=== PATIENT | female | born 1980 | race Caucasian/White ===

== ENCOUNTER 2021-09-05 16:48 | Emergency (ER) | payer BC, SELFPAY ==
[2021-09-05 17:30] VITALS: BP 149/99; PULSE 76; RESP 18; TEMP 36.1; O2SAT 100
--- NOTE | 2021-09-05 18:39 | ED.URI ---
HPI - URI/Sore Throat General Chief Complaint: Upper Respiratory Infection Stated Complaint: sorethroat,headache,sob Time Seen by Provider: 09/05/21 17:50 Source: patient and RN notes reviewed Mode of arrival: ambulatory Limitations: no limitations History of Present Illness HPI Narrative: Patient presents today complaining of a 2-day history of sore throat, cough, nausea, diarrhea. Her kids at home have tested positive for COVID-19. 2 to 3 days ago she had a negative home test. Denies fever. She has not been taking any [id number] medication at home for her symptoms. She currently rates her sore throat 2?11/09. MD elicited complaint: cough and sore throat Related Data Allergies Allergy/AdvReac Type Severity Reaction Status Date / Time No Known Allergies Allergy Verified 04/27/15 10:17 Review of Systems Review of Systems: CONSTITUTIONAL: Denies body aches, fever, chills, or sweats. EYES: Denies visual changes, redness, or discharge. ENT: Denies rhinorrhea, congestion,or otalgia.+ Sore throat CARDIOVASCULAR: Denies chest pain, palpitations, or edema. RESPIRATORY: Denies dyspnea.+ Cough GASTROINTESTINAL: Denies abdominal pain, vomiting+ Nausea, diarrhea GENITOURINARY: Denies dysuria or hematuria. SKIN: Denies rash, itching, or wounds. MUSCULOSKELETAL: Denies back pain, joint pain, or myalgia. NEUROLOGIC: Denies headache, numbness, tingling, or weakness. PSYCH: Denies depression or anxiety. PMFSH Comments At time of signature, I have reviewed and agree with nursing past medical, surgical, social and family history unless otherwise noted. Please see nursing chart for further information. There is no relevant family history pertinent to the presenting complaint Exam Narrative: GENERAL: Well-appearing, well-nourished, and in no acute distress. HEAD: Normocephalic, atraumatic. EYES: EOMI. No redness or drainage. Conjunctivae normal. ENT: Mucous membranes pink and moist. Nares clear. No rhinorrhea. TMs normal bilaterally. Throat with slight redness to the right palatine arch. Uvula midline. NECK: Normal AROM. Supple. No lymphadenopathy. CHEST: No respiratory distress. Clear to auscultation. HEART: Regular rate and rhythm. No murmur appreciated. Normal peripheral pulses. ABDOMEN: Soft, nontender, nondistended, normal active bowel sounds. EXTREMITIES: Normal range of motion. No edema. SKIN: Warm, dry, no rash. Capillary refill normal. Normal skin turgor. NEURO: No focal deficits. Alert and oriented x3. Gait steady. PSYCH: Normal affect. No signs of depression or anxiety. Course Course Level of Care: Express Care Visit Vital Signs Vital signs: Vital Signs Temperature 96.9 F L 09/05/21 17:30 Pulse Rate 76 09/05/21 17:30 Respiratory Rate 18 09/05/21 17:30 Blood Pressure 149/99 H 09/05/21 17:30 Pulse Oximetry 100 09/05/21 17:30 Temperature 96.9 F L 09/05/21 17:30 Pulse Rate 76 09/05/21 17:30 Respiratory Rate 18 09/05/21 17:30 Blood Pressure 149/99 H 09/05/21 17:30 Pulse Oximetry 100 09/05/21 17:30 Reviewed. Pt has been instructed to follow up with her PCP regarding her elevated blood pressure today. MDM - URI/Sore Throat Differential Diagnosis Differential diagnosis: Likely upper respiratory infection, viral infection, pharyngitis and other (COVID-19, strep throat) Lab Data Attestation: I reviewed the patient's lab results. Lab results narrative: Rapid COVID-19 test negative Labs: Strep Screen Presumptive Negative *(Reference Range: Negative)* Critical Care Time Critical Care Time Critical Care Time: No Discharge Plan Discharge Clinical Impression: Viral syndrome Patient Disposition: Home, Self-Care Condition: Stable Instructions: Viral Syndrome (ED) Additional Instructions: Rapid strep screen and rapid COVID-19 test are negative. You have a COVID-19 PCR test pending and will be notified of t
[2021-09-06 14:39] LABS: SARS-CoV-2 RNA PCR Positive
== END 2021-09-05 18:55 | disposition home or self-care (01) ==
PROVIDERS: Emergency Provider Nurse Practitioner; PCP Nurse Practitioner Family
DX: U07.1 COVID-19 (principal)
CPT/HCPCS: 87081; 87426; 87880; 99213; C9803; G0463; U0003; U0005

== ENCOUNTER 2022-07-19 11:24 | Emergency (ER) | payer BC, SELFPAY ==
[2022-07-19 11:35] VITALS: BP 173/96; PULSE 82; RESP 18; TEMP 36.8; O2SAT 96
--- NOTE | 2022-07-19 11:57 | ED.ABDPAIN ---
HPI - Abdominal Pain General Chief Complaint: Abdominal Pain Stated Complaint: Abdominal Pain Time Seen by Provider: 07/19/22 11:57 Source: patient Mode of arrival: ambulatory Limitations: no limitations History of Present Illness HPI narrative: 41-year-old female presents with complaint of lower abdominal cramping and chills the past 2-3 days. Today she reports pain is worse to right lower quadrant, vomited once and now has feeling that she needs to have a bowel movement but was unable to go . She denies urinary symptoms. No concern for . No URI symptoms. Is concerned for appendicitis. She states that she feels like her abdomen is rigid . All systems reviewed and negative except as noted above. Related Data Home Medications Medication Instructions Recorded Confirmed No Home Medications 07/19/22 07/19/22 Allergies Allergy/AdvReac Type Severity Reaction Status Date / Time No Known Allergies Allergy Verified 07/19/22 11:49 Review of Systems Review of Systems: CONSTITUTIONAL: Denies fever, chills, or sweats. EYES: Denies visual changes, redness, or discharge. ENT: Denies rhinorrhea, congestion, sore throat, or otalgia. CARDIOVASCULAR: Denies chest pain, palpitations, or edema. RESPIRATORY: Denies cough or dyspnea. GASTROINTESTINAL: Reports right lower abdominal pain, constipation, nausea vomiting. GENITOURINARY: Denies dysuria or hematuria. SKIN: Denies rash or itching. MUSCULOSKELETAL: Denies back pain, joint pain, or myalgia. NEUROLOGIC: Denies headache, numbness, or weakness. PSYCHIATRIC: Denies anxiety or depression. All other systems reviewed are negative, except as documented in HPI. PMFSH Comments At time of signature, agree with nursing past medical, surgical, social and family history. There is no relevant family history pertinent to the presenting complaint. Exam Narrative: GENERAL: This is a well-nourished, well-developed patient, in no apparent distress. HEAD: normocephalic, atraumatic. EYES: PERRL. Sclera clear/white. Vision is grossly intact. EARS: External ears normal NOSE: External nose normal NECK: Neck supple, non-tender without lymphadenopathy, masses or thyromegaly. CARDIOVASCULAR: Regular rate and rhythm without murmurs, gallops, or rubs. RESPIRATORY: Clear to auscultation. Breath sounds equal bilaterally. No wheezes, rales, or rhonchi. GASTROINTESTINAL: Suprapubic, right lower abdominal tenderness. Bowel sounds are active. SKIN: warm, Dry, intact with no suspicious lesions or rash, good texture and turgor. NEURO: awake, alert, and oriented to person, place and time. There were no obvious focal neurologic abnormalities. EXTREMITIES: No joint tenderness, effusion, or edema noted. Course Course Level of Care: Express Care Visit Vital Signs Vital signs: Reviewed Transfer Transfered to: [place] Transportation: Other ( private car) Transfer rationale: transfer to [place] ER for further evaluation of right lower abdominal pain, rule out appendicitis. Accepting physician: Heather CHILD MDM - Abdominal Pain MDM Narrative Medical decision making narrative: Patient is aware of diagnosis, understands and agrees to treatment plan. Anticipatory guidance given. Patient agrees to follow-up as directed and is aware of reasons to seek care at the emergency department. Portions of this record may have been created with voice recognition software Differential Diagnosis Differential diagnosis: Likely abdominal pain, acute appendicitis, constipation, gastroenteritis and small bowel obstruction Lab Data Labs: Urine Glucose Negative Reference Range: Negative Urine Bilirubin Negative Reference Range: Negative Urine Ketone Negative Reference Range: Negative Urine Specifi
== END 2022-07-19 12:08 | disposition short-term general hospital (02) ==
PROVIDERS: Emergency Provider Nurse Practitioner Family; PCP Nurse Practitioner Family
DX: R10.31 Right lower quadrant pain (principal)
CPT/HCPCS: 81003; 99212; G0463

== ENCOUNTER 2022-07-19 12:35 | Day surgery (SDC) | payer BC, SELFPAY ==
[2022-07-19] VITALS (7 sets, daily range): BP systolic 100–178; BP diastolic 57–91; PULSE 67–80; RESP 15–20; TEMP 36.6–37.1; O2SAT 96–100
--- NOTE | ~2022-07-19 | CT_ITS ---
EXAMINATION: CT abdomen pelvis w con DATE: 07/19/2022 13:56 INDICATION: Right lower quadrant abdominal pain. TECHNIQUE: Computed tomography (CT) of the abdomen and pelvis was performed with 100 mL Omnipaque 350 intravenous contrast. Automated exposure control and iterative reconstruction technique were employe d. The dose-length product was 1454.59 mGy-cm. COMPARISON: None. FINDINGS: The visualized portions of the lung bases demonstrate mild atelectasis. No pleural effusion . The heart size is normal. No pericardial effusion. The liver, gallbladder, spleen, pancreas, adrena l glands, and kidneys are normal. There is an appendicolith in the base of the appendix. The appendix is dilated to 9 mm with surrounding fat stranding, consistent with acute appendicitis. There are no pathologically enlarged lymph nodes. There is physiologic fluid in the pelvis. There is mild thoracol umbar spondylosis. IMPRESSION: 1. Acute appendicitis. Reviewed, dictated and finalized at location A. 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 Acute appendicitis.
--- NOTE | 2022-07-19 13:21 | ED.ABDPAIN ---
HPI - Abdominal Pain General Chief Complaint: Abdominal Pain Stated Complaint: R SIDED ABD PAIN Time Seen by Provider: 07/19/22 13:13 Source: RN notes reviewed History of Present Illness HPI narrative: Patient presents emergency room from home for abdominal pain. Patient states pain began 3 days ago. The pain is located in the right side of the abdomen pain has worsened today and is located in the right upper quadrant with radiation in the right lower quadrant. It is associate with nausea and vomiting. She denies any diarrhea she denies any chest pain or shortness of breath. States she has had no fevers or chills she did take Midol at home this morning with minimal relief of the pain Related Data Home Medications Medication Instructions Recorded Confirmed No Home Medications 07/19/22 07/19/22 Allergies Allergy/AdvReac Type Severity Reaction Status Date / Time No Known Allergies Allergy Verified 07/19/22 11:49 Review of Systems Review of Systems: Gen.: Denies fevers or chills ENT: Denies congestion Respiratory: Denies shortness of breath or cough CV: Denies chest pain or palpitations GI: See HPI Musculoskeletal: Denies back pain or muscle pain Neuro: Denies numbness, tingling, weakness or focal weakness Skin: Denies rash Except as documented, all other systems reviewed and negative [facility] Past Medical History Medical History (Updated 07/19/22 @ 15:24 by Errol Barron DO) Patient denies significant medical history Social History Social History (Updated 07/19/22 @ 13:22 by Errol Barron DO) Smoking status: Never smoker Exam Narrative: APPEARANCE: No acute distress, nontoxic, resting in bed HEENT: Normocephalic, atraumatic, OMM RESPIRATORY: No respiratory distress, clear to auscultation bilaterally with no rhonchi wheezing or rales CARDIOVASCULAR: RRR s murmur ABDOMINAL: Soft nondistended tender palpation in right upper quadrant and right lower quadrant no tenderness left upper quadrant left lower quadrant no rebound or guarding MUSCULOSKELETAl: Moves all extremities. No clubbing, cyanosis or edema. NEURO: Awake and alert. Following commands, speech normal, no focal deficits SKIN:: Warm, dry. Normal Color PSYCHIATRIC: Normal affect/mood Course Course Emergency Course: Called and discussed with Dr. Hernandez will come see patient in the ED Dr. Hernandez came to see patient in the ED we will plan take patient to the OR. Requesting antibiotics at this time as we will put him in for preop Discussed with patient and family r results of appendicitis plan for OR. All questions answered Vital Signs Vital signs: Vital Signs Temperature 98.8 F 07/19/22 13:00 Pulse Rate 76 07/19/22 13:00 Respiratory Rate 18 07/19/22 13:00 Blood Pressure 178/91 H 07/19/22 13:00 Pulse Oximetry 100 07/19/22 13:00 Oxygen Delivery Room Air 07/19/22 13:00 Temperature 98.8 F 07/19/22 13:00 Pulse Rate 76 07/19/22 13:00 Respiratory Rate 18 07/19/22 13:00 Blood Pressure 178/91 H 07/19/22 13:00 Pulse Oximetry 100 07/19/22 13:00 Oxygen Delivery Room Air 07/19/22 13:00 MDM - Abdominal Pain Lab Data Result diagrams: 07/19/22 13:05 07/19/22 13:05 Labs: Lab Results 07/19/22 07/19/22 07/19/22 Range/Units 13:05 13:05 13:14 WBC 13.3 H (4.5-10.0) K/mm3 RBC 4.42 (4.2-5.4) M/mm3 Hgb 14.1 (12.0-15.0) g/dL Hct 41.6 (37.0-47.0) % MCV 94.1 (80-100) fl MCH 31.9 (26-34) pg MCHC 33.9 (32-36) g/dl RDW 12.8 (11.5-14.5) % Plt Count 239 (150-375) k/mm3 MPV 11.1 H (7.4-10.4) fl Immature Gran % (Auto) 0.2 (0-0.5) % Neut % (Auto) 82.7 H (45.5-73.1) % Lymph % (Auto) 12.1 L (18.3-44.2) % [place] % (Auto) 4.6 (2.6-8.5) % Eos % (Auto) 0.2 (0-4.4) % Baso % (Auto) 0.2 (0.2-1.2) % Lymph # (Auto) 1.61 (0.9-3.2) K/mm3 [place] # (Auto) 0.6 (0.1-0.6) K/mm3 Eos # (Auto) 0.0 (0-0
[2022-07-19 13:27] LABS: Basophils Percent Auto 0.2 % (0.2-1.2); Eosinophils Percent Auto 0.2 % (0-4.4); Hematocrit 41.6 % (37.0-47.0); Hemoglobin 14.1 g/dL (12.0-15.0); Immature Granulocyte Absolute 0.03 K/mm3 (0.00-0.031); Immature Granulocyte Percent A 0.2 % (0-0.5); Lymphocytes Absolute Auto 1.61 K/mm3 (0.9-3.2); Lymphocytes Percent Auto 12.1 % (18.3-44.2); Mean Corpuscular HGB Conc 33.9 g/dl (32-36); Mean Corpuscular Hemoglobin 31.9 pg (26-34); Mean Corpuscular Volume 94.1 fl (80-100); Mean Platelet Volume 11.1 fl (7.4-10.4); Monocytes Absolute Auto 0.6 K/mm3 (0.1-0.6); Monocytes Percent Auto 4.6 % (2.6-8.5); Neutrophils Percent Auto 82.7 % (45.5-73.1); Platelet Count Result 239 k/mm3 (150-375); Red Blood Count 4.42 M/mm3 (4.2-5.4); Red Cell Distribution Width 12.8 % (11.5-14.5); White Blood Count 13.3 K/mm3 (4.5-10.0)
[2022-07-19 13:32] LABS: Appearance Urine Clear (Clear); Bilirubin Urine Negative (Negative); Blood Urine Negative (Negative); Color Urine Yellow (Yellow); Glucose Urine UA Negative (Negative); Ketones Urine 1+ mg/dL (Negative); Leukocyte Esterase Ur Negative LEU/UL (Negative); Nitrate Urine Negative (Negative); Protein Urine Negative (Negative); Specific Grav Ur 1.025 (1.001-1.035); Urobilinogen Urine 0.2 mg/dL (<2.0)
[2022-07-19 13:37] LABS: Alanine Aminotransferase 19 U/L (6-35); Albumin Level 4.7 g/dL (3.5-5.1); Alkaline Phosphatase 69 U/L (38-126); Anion Gap 8 mmol/L (8-16); Aspartate Amino Transferase 21 U/L (14-36); Bilirubin,Total 0.9 mg/dL (0.2-1.3); Blood Urea Nitrogen 11 mg/dL (7-17); Calcium 9.2 mg/dL (8.4-10.2); Carbon Dioxide 25 mmol/L (22-30); Chloride 100 mmol/L (98-107); Estimated CRCL calculation 125 ml/min; Estimated Glomerular Filt Rate > 60; Glucose 96 mg/dL (65-110); Lipase 43 U/L (23-300); Potassium 4.3 mmol/L (3.4-5.0); Sodium 133 mmol/L (137-145)
[2022-07-19 13:43] LABS: Bacteria Urine Trace /hpf; Mucus Urine Rare /lpf; RBC Urine 0-2 /hpf (0-2); Squamous Epithelial Cell Urine Occasional /hpf (Few); WBC Urine 0-3 /hpf
[2022-07-19 13:46] LABS: Add Urine Microscopic? YES
[2022-07-19] MEDS: SODIUM CHLORIDE 0.9% IV 1,000 ML 999 ML IV CONT (14:02)
[2022-07-19] MEDS: ONDANSETRON INJ 4 MG/2 ML VIAL IV PUSH (14:02)
[2022-07-19] MEDS: KETOROLAC 30 MG/ML VIAL (*BKC) IV PUSH (14:02)
--- NOTE | 2022-07-19 15:32 | PM.IMHP ---
H&P: HPI History of Present Illness Date/Time: 07/19/22 15:32 Chief Complaint: Lower abdominal pain shifting to the right over the last 12 hours Narrative: The patient is a 41-year-old white female who presented to the emergency room from home for abdominal pain.? Patient states pain began had a low level3 days ago. she states however that early this morning at 4:30 a.m. she woke up with fairly severe pain more now on the right then in the mid abdomen.? The pain is located on the right side of the abdomen pain has worsened today and is located in the right upper quadrant with radiation in the right lower quadrant.? It is associated with nausea and vomiting.? She denies any diarrhea, she denies any chest pain or shortness of breath.? She states she had a small normal stool this morning. States she has had no fevers or chills &she did take Midol at home this morning with minimal relief of the pain. Workup in the emergency room showed elevated white count. Because of her symptoms CT scan of the abdomen pelvis was done and I have reviewed this. It shows is dilated appendix without sign of perforation but an appendicolith at its base. There was a small amount of pelvic fluid but no other specific abnormalities on the CT scan of the abdomen and pelvis. See plan below. Review of Systems Review of Systems: All systems reviewed & are unremarkable except as noted in HPI and below (HPI) Constitutional: Constitutional: Reports as per HPI, Denies chills and Denies fever(s) Eyes: Eyes: Reports no additional eye complaints ENT: Reports Normal hearing present and Denies dizziness Cardiovascular: Cardiovascular: Reports no additional cardiovascular complaints, Denies chest pain and Denies irregular heart rhythm Respiratory: Respiratory: Reports no additional respiratory complaints Gastrointestinal: Gastrointestinal: Reports no additional gastrointestinal complaints, Denies abdominal pain and Denies bloating Comments: 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 Patient is therefore careful with fatty foods. Genitourinary: Genitourinary: Reports no additional female genitourinary complaints, Denies hematuria, Denies dysmenorrhea, Denies dysuria and Reports other (Premenopausal) Comments: Patient not yet due for her period but had cramping in the lower abdomen like. Cramps for the last 3 days. Musculoskeletal: Musculoskeletal: Denies back pain Integumentary/Breasts: Skin/Breast: Reports system reviewed and no additional complaints, except as docu Neurologic: Reports Normal hearing present, Denies Abnormal speech present, Denies confusion and Denies dizziness Psychiatric: Psychiatric: Reports no additional psychiatric complaints and Denies confusion Endocrine: Endocrine: Reports no additional endocrine complaints Hematologic/Lymphatic: Hematologic/Lymphatic: Denies easy bleeding and Denies easy bruising Allergic/Immunologic: Allergic/Immunologic: Reports no additional allergic/immunologic complaints PMFSH Past Medical History Medical History Obesity (BMI 30.0-34.9) Surgical History Surgical History History of section History of laparoscopy Social History Social History Smoking status: Never smoker Meds Home Medications and Allergies Home Medications Medication Instructions Recorded Confirmed Type No Home Medications 07/19/22 07/19/22 History Allergies Allergy/AdvReac Type Severity Reaction Status Date / Time No Known Allergies Allergy Verified 07/19/22 11:49 Vital Signs Vital Signs - 24 hr 07/19/22 13:00 Temperature 37.1 C Pulse Rate 76 Respiratory Rate 18 Blood Pressure 178/91 H Pulse Oximetry 100 Oxygen Delivery Room Air Exam Const: General:
[2022-07-19] MEDS: SODIUM CHLORIDE 0.9% IV 1,000 ML 100 ML IV CONT (15:58)
[2022-07-19] MEDS: LACTATED RINGERS 1,000 ML 30 ML IV CONT ×2 (17:14→19:38)
--- NOTE | 2022-07-19 17:42 | WPDANESEPPF ---
Anes - Initial Pre Proc Eval Procedure: Operation Date: 07/19/22 18:00 Proposed Procedures p Laparoscopic Appendectomy Possible Open - Dav Hernandez MD Date/Time: 07/19/22 17:42 Surgeon: Dav Hernandez MD Pre Op Diagnosis: R SIDED ABD PAIN Patient Data Age: 41 Gender: F Height: 1.7 m Weight: 100 kg Last Vital Signs Temp 36.9 C 07/19/22 17:26 Pulse 73 07/19/22 17:26 Resp 16 07/19/22 17:26 BP 120/57 L 07/19/22 17:26 Pulse Ox 100 07/19/22 17:26 O2 Del Method Room Air 07/19/22 17:26 Allergies Allergy/AdvReac Type Severity Reaction Status Date / Time No Known Allergies Allergy Verified 07/19/22 11:49 Home Medications Medication Instructions Recorded Confirmed Type No Home Medications 07/19/22 07/19/22 History Laboratory Tests 07/19/22 07/19/22 07/19/22 13:05 13:05 13:14 WBC 13.3 K/mm3 H K/mm3 (4.5-10.0) RBC 4.42 M/mm3 M/mm3 (4.2-5.4) Hgb 14.1 g/dL g/dL (12.0-15.0) Hct 41.6 % % (37.0-47.0) MCV 94.1 fl fl (80-100) MCH 31.9 pg pg (26-34) MCHC 33.9 g/dl g/dl (32-36) RDW 12.8 % % (11.5-14.5) Plt Count 239 k/mm3 k/mm3 (150-375) MPV 11.1 fl H fl (7.4-10.4) Immature Gran % (Auto) 0.2 % % (0-0.5) Neut % (Auto) 82.7 % H % (45.5-73.1) Lymph % (Auto) 12.1 % L % (18.3-44.2) [place] % (Auto) 4.6 % % (2.6-8.5) Eos % (Auto) 0.2 % % (0-4.4) Baso % (Auto) 0.2 % % (0.2-1.2) Lymph # (Auto) 1.61 K/mm3 K/mm3 (0.9-3.2) [place] # (Auto) 0.6 K/mm3 K/mm3 (0.1-0.6) Eos # (Auto) 0.0 K/mm3 K/mm3 (0-0.3) Baso # (Auto) 0.0 K/mm3 K/mm3 (0.0-0.1) Abs Immat Gran (auto) 0.03 K/mm3 K/mm3 (0.00-0.031) Absolute Neuts (auto) 11.0 K/mm3 H K/mm3 (1.3-6.7) Absolute Nucleated RBC 0.0 K/mm3 K/mm3 (0.0-0.012) Nucleated RBC % 0.0 % % (0.0-0.2) Sodium 133 mmol/L L mmol/L (137-145) Potassium 4.3 mmol/L mmol/L (3.4-5.0) Chloride 100 mmol/L mmol/L (98-107) Carbon Dioxide 25 mmol/L mmol/L (22-30) Anion Gap 8 mmol/L mmol/L (8-16) BUN 11 mg/dL mg/dL (7-17) Creatinine 0.60 mg/dL L mg/dL (0.7-1.0) Estim Creat Clear Calc 125 ml/min ml/min Estimated GFR > 60 (59 - ) Glucose 96 mg/dL mg/dL (65-110) Calcium 9.2 mg/dL mg/dL (8.4-10.2) Total Bilirubin 0.9 mg/dL mg/dL (0.2-1.3) AST 21 U/L U/L (14-36) ALT 19 U/L U/L (6-35) Alkaline Phosphatase 69 U/L U/L (38-126) Total Protein 8.0 g/dL g/dL (6.3-8.2) Albumin 4.7 g/dL g/dL (3.5-5.1) Lipase 43 U/L U/L (23-300) Urine Color Yellow (Yellow) Urine Appearance Clear (Clear) Urine pH 6.0 (5.0-9.0) Ur Specific [place] 1.025 (1.001-1.035) Urine Protein Negative mg/dL mg/dL (Negative) Urine Glucose (UA) Negative mg/dL mg/dL (Negative) Urine Ketones 1+ mg/dL H mg/dL (Negative) Ur Blood (Man) Negative (Negative) Urine Nitrate Negative (Negative) Urine Bilirubin Negative (Negative) Urine Urobilinogen 0.2 mg/dL mg/dL (<2.0) Leukocyte Esterase Rfl Negative SAM/UL SAM/UL (Negative) Urine RBC 0-2 /hpf /hpf (0-2) Urine WBC 0-3 /hpf /hpf Ur Squamous Epith Cells Occasional /hpf /hpf (Few) Urine Bacteria Trace /hpf /hpf Urine Mucus Rare /lpf /lpf Patient hx anesthesia problems: post op nausea/vomiting Family hx anesthesia problems: none Results Review: All pre-operative results and documents have been reviewed as part of the pre-operative evaluation. [facility] Past Medical History Medical History (Rev
[2022-07-19] MEDS: SCOPOLAMINE 1.5 MG PATCH TRANSDERM (17:44)
--- NOTE | 2022-07-19 17:51 | WPDHPUPDATE1 ---
History and Physical Update Update Date/Time: 07/19/22 17:51 History and Physical has been reviewed, including an updated exam of the patient. There are NO changes in the patient's condition. Risks, benefits, and alternatives have been discussed and questions answered. Patient agrees to proceed with procedure.
[2022-07-19] MEDS: cefoTEtan DISODIUM INJ 2 GM in DEXTROSE 5% IN WATER 50 ML IVPB (18:03)
[2022-07-19] MEDS: BUPIVACAINE HCL 0.5% PF 30 ML VIAL INFILTRATE (19:26)
--- NOTE | 2022-07-19 19:34 | W.PM.PROC2 ---
Procedure Note - Detailed Date of Procedure 07/19/22 Pre-op Diagnosis 1. Acute uncomplicated appendicitis 2. Rt. SIDED ABD PAIN Post-op Diagnosis Same Procedure Performed laparoscopic appendectomy Surgeon Dav Hernandez MD Selling Specialist Kim BROWN. 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 She had an elevated white count and CT scan showing acute uncomplicated appendicitis with no signs of perforation but an appendicolith at its base. Findings Patient's appendix was even with the umbilicus between the cecum and the right abdominal sidewall. Was fairly adherent to the right sidewall of the colon and some of the fat on the omentum. There was no signs of perforation. Description of Procedure The patient was seen in the emergency Room. The risks, benefits, complications, treatment options, and expected outcomes were discussed with the patient and/or family. The possibilities of reaction to medication, pulmonary aspiration, perforation of viscus, bleeding, recurrent infection, finding a normal appendix, the need for additional procedures, failure to diagnose a condition, and creating a complication requiring transfusion or operation were discussed. There was concurrence with the proposed plan and informed consent was obtained. The site of surgery was properly noted/marked. The patient was taken to Operating Room, and a time out was preformed which identified this as the proper patient, and the procedure verified as laparoscopic appendectomy, possible open. The patient was placed in the supine position and general anesthesia was induced, along with placement of an orogastric tube, SCD hose, and a Fernandez catheter. The abdomen was prepped and draped in a sterile fashion. Because the patient had had previous surgeries the Plummer cannula technique was utilized. To do this I made a incision in the umbilical area and carried this down to the midline fascia. Under direct vision the midline fascia was incised and the peritoneum entered under direct vision after placing 2 sutures of 0 Vicryl in the fascia on either side of midline. The Plummer cannula was then slid into place into the peritoneum under direct vision. The pneumoperitoneum was then established to steady pressure of 14 mm Hg. A 12 mm laparoscopic port was placed through a transverse suprapubic incision. An additional 5 mm cannula was then placed in in the left upper quadrant at the level retirement between the left costal margin and the umbilicus under direct vision. A careful evaluation of the entire abdomen was carried out. The patient was placed in Trendelenburg and left lateral decubitus position. The small intestines were retracted in the cephalad and left lateral direction away from the pelvis and right lower quadrant. The patient was found to have an enlarged and inflamed appendix that was extending [into the right side of the pelvis. There was no evidence of perforation. The appendix was carefully dissected. Because of the positioning the appendix I used a [place] dissector to dissect right at the junction of the appendix base to the cecum and was able to make a small window at that site in the mesoappendix such that I could slide the stapler through their at the base the appendix. A blue gastrointestinal load was placed on the Endo-DOMINIQUE stapler and brought through the suprapubic port site. With slight maneuvering I was able to be slid across the base the appendix right where it joined the cecum. Once this was completed it was closed fired left in place for 15 seconds removed. Minimal bleeding occurred and I touched a little bit of the mesial base with Bovie cautery to stop a slight be a bleeder. This left the mesoappendix to be divided. Once it was free at the base a 45 mm ethicon endogastroentestinal stapler with a vascular load was placed across the mesoappendix. This was fired and hemostasis was checked along the staple line and maxine
== END 2022-07-19 20:48 | disposition home or self-care (01) ==
LOC: ANHED 15:24 → ANHSURGERY 15:26
PROVIDERS: Emergency Provider Emergency Medicine; PCP Nurse Practitioner Family; Visit Provider Surgery
PROC: 0DTJ4ZZ Resection of Appendix, Percutaneous Endoscopic Approach (ICD-10-PCS; CPT 44970; principal; 2022-07-19 18:00)
DX: K35.30 Acute appendicitis with localized peritonitis, without perforation or gangrene (principal); K83.8 Other specified diseases of biliary tract; E66.9 Obesity, unspecified; Z68.34 Body mass index [BMI] 34.0-34.9, adult
CPT/HCPCS: 44970; 36415; 74177; 80053; 81001; 81025; 83690; 85025; 88304; 96361; 96374; 96375; 99285; A9270; J0330; J1100; J1885; J2405; J2704; J2710; J3010; J7030; J7120; Q9967

== ENCOUNTER 2024-03-10 01:20 | Day surgery (SDC) | payer BC, SELFPAY ==
[2024-02-27 11:38] VITALS: BMI 33.7
[2024-03-10 10:41] VITALS: BP 127/83; PULSE 71; RESP 16; TEMP 36.5; O2SAT 100
[2024-03-10] MEDS: LACTATED RINGERS 1,000 ML 150 ML IV CONT (11:03)
--- NOTE | 2024-03-10 11:16 | P.PNAN_ITS ---
Anes - Initial Pre Proc Eval Procedure: Operation Date: 03/10/24 11:30 Proposed Procedures p Screening Colonoscopy - Daryl Arriola DO Date/Time: 03/10/24 11:16 Surgeon: Daryl Arriola DO Pre Op Diagnosis: screening neoplasm Patient Data Age: 43 Gender: F Height: 1.7 m Weight: 99.6 kg Last Vital Signs Temp 97.7 F 03/10/24 10:41 Pulse 71 03/10/24 10:41 Resp 16 03/10/24 10:41 BP 127/83 03/10/24 10:41 Pulse Ox 100 03/10/24 10:41 O2 Del Method Room Air 03/10/24 10:41 Allergies Allergy/AdvReac Type Severity Reaction Status Date / Time No Known Allergies Allergy Verified 03/10/24 10:40 Home Medications Medication Instructions Recorded Confirmed Type No Home Medications 02/27/24 02/27/24 History Patient hx anesthesia problems: none Family hx anesthesia problems: none Results Review: All pre-operative results and documents have been reviewed as part of the pre- operative evaluation. [facility] Past Medical History Medical History Obesity (BMI 30.0-34.9) Surgical History Surgical History History of section History of laparoscopic appendectomy 07/19/22 History of laparoscopy Family History Family History (Updated 12/19/23 @ 08:07 by Olga Carson CMA) Father Hypertension Grandparent Asthma Cancer Thyroid disorder Social History Social History (Updated 12/19/23 @ 08:22 by Anju Potter) Social History: Patient is very confident in filling out paperwork. Smoking status: Never smoker Alcohol intake: current Drinks per week: 3 Alcohol use details: WINE Substance use: never Substance use type: does not use Do You Feel Safe in your Home?: Yes Lack of Transportation: No Lack of Food: Never True Current Housing: I Have Housing Concerned About Future Housing: No Difficulty Paying Gas/Electric Bills: No Difficulty Paying for Meds: No Currently Unemployed: No Education: Master's Degree or Higher Difficulty w/ Childcare or Family Care: No Living arrangements: with family Spiritual care concerns: No Anes - Eval Final PreProcedure Day of Procedure 03/10/24 11:16 Patient weight: obese Heart: regular rate and rhythm Lungs: clear to auscultation Airway: Mallampati scale class II Neurological: alert and oriented Last oral intake: >/= 8 hours ASA classification: II Emergent: no Anesthetic plan: proceed Anesthesia type and monitoring: general GIVS and standard monitoring Results Review: All pre-operative results and documents have been reviewed as part of the pre- operative evaluation. Informed Consent: The patient's anesthetic plan and its attendant risks and benefits were discussed with the patient/family/POA. Questions were solicited and answers provided to the satisfaction of the patient/family/POA.
--- NOTE | 2024-03-10 11:52 | PM.IMHP ---
H&P: HPI History of Present Illness Date/Time: 03/10/24 11:52 Chief Complaint: screening for colorectal cancer Narrative: this is a 43-year-old woman who presents for colonoscopy. She has never had a colonoscopy before. She denies any hematochezia or melena. She denies any family history of colon cancer. Review of Systems Review of Systems: All systems reviewed & are unremarkable except as noted in HPI and below Constitutional: Constitutional: Denies chills, Denies fever(s), Denies headache(s) and Denies weight loss Eyes: Eyes: Denies change in vision ENT: Denies dizziness, Denies headache(s), Denies neck mass and Denies throat swelling Cardiovascular: Cardiovascular: Denies chest pain, Denies lightheadedness and Denies dyspnea Respiratory: Respiratory: Denies cough, Denies dyspnea and Denies wheezing Gastrointestinal: Gastrointestinal: Denies abdominal pain, Denies change in bowel habits, Denies nausea and Denies vomiting Genitourinary: Genitourinary: Denies hematuria and Denies dysuria Musculoskeletal: Musculoskeletal: Reports as per HPI Integumentary/Breasts: Skin/Breast: Reports as per HPI Neurologic: Denies dizziness and Denies headache(s) Allergic/Immunologic: Allergic/Immunologic: Denies throat swelling and Denies wheezing [facility] Past Medical History Medical History Obesity (BMI 30.0-34.9) Surgical History Surgical History History of section History of laparoscopic appendectomy 07/19/22 History of laparoscopy Family History Family History (Updated 12/19/23 @ 08:07 by Olga Carson CMA) Father Hypertension Grandparent Asthma Cancer Thyroid disorder Social History Social History (Updated 12/19/23 @ 08:22 by Anju Potter) Social History: Patient is very confident in filling out paperwork. Smoking status: Never smoker Alcohol intake: current Drinks per week: 3 Alcohol use details: WINE Substance use: never Substance use type: does not use Do You Feel Safe in your Home?: Yes Lack of Transportation: No Lack of Food: Never True Current Housing: I Have Housing Concerned About Future Housing: No Difficulty Paying Gas/Electric Bills: No Difficulty Paying for Meds: No Currently Unemployed: No Education: Master's Degree or Higher Difficulty w/ Childcare or Family Care: No Living arrangements: with family Spiritual care concerns: No Meds Home Medications and Allergies Home Medications Medication Instructions Recorded Confirmed Type No Home Medications 02/27/24 02/27/24 History Allergies Allergy/AdvReac Type Severity Reaction Status Date / Time No Known Allergies Allergy Verified 03/10/24 10:40 Vital Signs Vital Signs - 24 hr 03/10/24 10:41 Temperature 36.5 C Pulse Rate 71 Respiratory Rate 16 Blood Pressure 127/83 Pulse Oximetry 100 Oxygen Delivery Room Air Exam Const: General: no acute distress and alert Orientation/consciousness: patient oriented x3 HENMT: Head: normocephalic and atraumatic Ears: hearing grossly normal bilaterally Face/Nose/Sinus: Normal nares present Mouth: Yes Normal oral and palatal mucosa present Eyes: Periorbital: periorbital findings normal Sclera: sclerae normal EOM: EOMs intact bilaterally Neck: Neck: normal visual inspection, no lymphadenopathy and trachea midline Chest: Chest palpation & inspection: normal inspection of the chest Resp: Effort & Inspection: normal respiratory effort Auscultation: clear to auscultation bilaterally Cardio: Jugular venous distension: no JVD Rate: regular rate Rhythm: regular rhythm Heart sounds: S1 normal heart sound present and S2 normal heart sound present Peripheral pulses: Peripheral pulses 2+ throughout GI: Inspection: normal to inspection GI Palp: Yes Soft to palpation, No Tenderness to palpation present (GI
[2024-03-10 12:24] VITALS: BP 91/47; PULSE 62; RESP 29; O2SAT 100
[2024-03-10 12:34] VITALS: BP 94/30; PULSE 58; RESP 18; O2SAT 100
[2024-03-10 12:44] VITALS: BP 102/60; PULSE 60; RESP 18; O2SAT 100
== END 2024-03-10 12:46 | disposition home or self-care (01) ==
PROVIDERS: PCP Nurse Practitioner Family; Visit Provider Surgery
PROC: 0DJD8ZZ Inspection of Lower Intestinal Tract, Via Natural or Artificial Opening Endoscopic (ICD-10-PCS; CPT 45378; principal; 2024-03-10 11:30)
DX: Z12.11 Encounter for screening for malignant neoplasm of colon (principal); E66.9 Obesity, unspecified; Z68.34 Body mass index [BMI] 34.0-34.9, adult
CPT/HCPCS: 45378; J2704; J7120

== ENCOUNTER 2024-03-13 10:00 | Outpatient (CLI) | payer BC, SELFPAY ==
--- NOTE | ~2024-03-13 | MM_ITS ---
EXAMINATION: MM screening nichole BI w abi HISTORY: Screening TECHNIQUE: Craniocaudal and mediolateral oblique 3-D tomosynthesis images were obtained and synthetic 2-D images were generated. CAD analysis was submitted and interpreted. COMPARISON: 07/14/2019 BREAST PARENCHYMAL COMPOSITION: Not dense: There are scattered areas of fibroglandular density. FINDINGS: There are developing asymmetries in the right breast. The left breast is stable without teto dence for malignancy. IMPRESSION: 1. Developing right breast asymmetries. 2. Additional mammographic views and possible breast ultrasound are recommended. BI-RADS Category 0: Incomplete: Needs additional imaging evaluation. Reviewed, dictated and finalized at location B. IMPRESSION: 1. Developing right breast asymmetries. 2. Additional mammographic views and possible breast ultrasound are recommended . BI-RADS Category 0: Incomplete: Needs additional imaging evaluation.
== END 2024-03-13 10:01 | disposition home or self-care (01) ==
LOC: ANHIMG 10:02
PROVIDERS: PCP Nurse Practitioner Family; Visit Provider Nurse Practitioner Family
DX: Z12.31 Encounter for screening mammogram for malignant neoplasm of breast (principal); N64.89 Other specified disorders of breast
CPT/HCPCS: 77063; 77067

== ENCOUNTER 2024-03-23 10:23 | Outpatient (CLI) | payer BC, SELFPAY ==
--- NOTE | ~2024-03-23 | MMUS_ITS ---
EXAMINATION: MM diagnostic nichole RT w abi, US breast RT complete HISTORY: Follow-up right breast asymmetries TECHNIQUE: Additional 3-D tomosynthesis images of the right breast were performed and synthetic 2-D i mages were generated. CAD analysis was submitted and interpreted. High resolution RIGHT breast ultras ound was performed. COMPARISON: Comparison to multiple prior studies sequentially, with oldest reviewed study dated 07/03. BREAST PARENCHYMAL COMPOSITION: Not dense: There are scattered areas of fibroglandular density. FINDINGS: MAMMOGRAPHIC FINDINGS: There is fat necrosis in the upper inner quadrant of the right breast, likely from prior trauma. No s uspicious masses, calcifications or architectural distortion in the right breast to suggest malignanc y. ULTRASOUND: Complete US of all 4 quadrants of the right breast And retroareolar region was reviewed. normal heter ogeneous echotexture without focal solid or cystic mass. IMPRESSION: 1. No evidence for malignancy in the right breast. 2. Routine yearly screening mammogram and regular clinical breast examination are recommended. BI-RADS Category 1: Negative Reviewed, dictated and finalized at location B. IMPRESSION: 1. No evidence for malignancy in the right breast. 2. Routine yearly screening mammogram and regular clinical breast examination a re recommended. BI-RADS Category 1: Negative
== END 2024-03-23 10:24 | disposition home or self-care (01) ==
LOC: ANHIMG 10:24
PROVIDERS: PCP Nurse Practitioner Family; Visit Provider Nurse Practitioner Family
DX: R92.8 Other abnormal and inconclusive findings on diagnostic imaging of breast (principal)
CPT/HCPCS: 76641; 77061; 77065; G0279

== ENCOUNTER 2025-02-05 09:13 | Outpatient (CLI) | payer BC, SELFPAY ==
--- NOTE | ~2025-02-05 | MR_ITS ---
MRI of the lumbar spine Clinical History: Pain Technique: Axial T2-weighted images, and sagittal T1-weighted, T2-weighted, and T2 fat-sat images wer e acquired. Findings: There is no fracture of the lumbar spine. There is 4 mm retrolisthesis of L3 over L4. No jarad ne marrow signal abnormality seen. At L1-L2, there is moderate degenerative distended. No disc bulge or herniation. Mild facet arthropat hy. No central canal stenosis. Neural foramina are preserved. At L2-L3, there is no disc bulge or herniation. There is mild to moderate facet arthropathy. No centr al canal stenosis or neural foraminal narrowing. At L3-L4, there is moderate degenerative disc narrowing. There is mild disc bulge with mild to modera te facet arthropathy. No central canal stenosis. There is severe left neural foraminal narrowing. Rig ht neural foramen preserved. At L4-L5, there is minimal disc bulge. No spinal canal stenosis or neural foraminal narrowing. At L5-S1, there is mild to moderate degenerative disc narrowing. There is minimal disc bulge. No spin al canal stenosis. There is mild left neural foraminal narrowing. Right neural foramen preserved. Paravertebral soft tissues are unremarkable. Impression: Neural foraminal narrowing at L3-L4 and L5-S1, as detailed above. Degenerative disc changes, as above. Reviewed, dictated and finalized at [facility]. Impression: Neural foraminal narrowing at L3-L4 and L5-S1, as detailed above. Degenerative disc changes, as above.
== END 2025-02-05 09:14 | disposition home or self-care (01) ==
LOC: MICIMG 09:13
PROVIDERS: PCP Nurse Practitioner Family; Visit Provider Nurse Practitioner Family
DX: M48.061 Spinal stenosis, lumbar region without neurogenic claudication (principal); M48.07 Spinal stenosis, lumbosacral region; M51.369 Other intervertebral disc degeneration, lumbar region without mention of lumbar back pain or lower extremity pain
CPT/HCPCS: 72148

== ENCOUNTER 2025-05-31 01:28 | Day surgery (SDC) | payer BC, SELFPAY ==
[2025-05-26 08:36] VITALS: BMI 35.3
--- NOTE | 2025-05-26 08:37 | PC.NURSE ---
[facility] has started construction of its new state of the art ER which will open Spring 2026. With this, we anticipate parking may be a challenge for some our surgical patients and families. Parking spaces are limited but are available for all Surgical, obstetrics, and ER patients sharing this lot. If you arrive and find you are having a hard time finding a parking space, please note that we understand the challenges, please drive around the hospital and park near Hospital Entrance 1. When you enter this entrance, you can ask a volunteer to direct or take you back to the surgical waiting area to check in. We appreciate everyone?s understanding of these expected challenges while we build for your future. Report to the Outpatient Waiting Room, entrance under the green pavilion located off [address], at time _3pm_ on date _[id number]_. Planned Procedure Time: _4pm_.? Time changes happen often and if your time is changed the preop area will call you the afternoon before. - You and your visitor will be asked to self-screen and do not enter if you have any COVID symptoms. Please call surgeon if you need to reschedule. - A mask is optional within the hospital at this time. Eat breakfast and a light lunch. Nothing to eat or drink 2 hours prior to procedure which is 2pm. No smoking, or chewing tobacco (or any form of nicotine). No chewing gum, candy or mints. Take only the following medications with a SIP of water on the morning of surgery: ___none___ DO NOT STOP ANY OF YOUR OTHER PRESCRIPTION MEDICATIONS PRIOR TO SURGERY EXCEPT THE FOLLOWING Hold all vitamins and supplements for 3 days per anesthesiologist. Medications to discontinue per physician Date to take last dose Please no make-up, nail czech, hairspray, perfume, deodorant, or body powder the day of surgery.? No jewelry (including any body piercings) or valuables the day of surgery, leave them at home.? Please take a shower or bath the night before, or the morning of, surgery with an antibacterial soap.? Wear comfortable, loose fitting clothing.? - Jewelry must be removed prior to entering the operating room.? Rings and piercings that are not removed may be cut off. - The hospital will not accept responsibility for valuables.? - Please leave all valuables, including medications, at home the day of surgery. If you are going home after surgery, a licensed straddle truck driver must drive you home.? - NO public transportation without another adult if you receive anesthesia. - We recommend that an adult stay with you for 24 hours following discharge. - We also recommend that you do not drive, make important decision, drink alcoholic beverages, or take any drugs that were not prescribed by your health care provider for at least 24 hours after your discharge time. Follow any additional instructions given to you from your surgeon. Telephone instructions given to __Marissa___and asked if any additional questions and then verbalized understanding. Patient advised to call surgeon office or pre surgery nurse liaison [phone] if any additional questions.
--- NOTE | ~2025-05-31 | XR_ITS ---
EXAMINATION: XR fluoroscopy no charge DATE: 05/31/2025 13:27 INDICATION: Intra-articular steroid injection at the right sacroiliac joint TECHNIQUE: 4 fluoroscopic images of the left sacroiliac joint were obtained during procedure performed by Dr. Esteban. Radiologist was not present for the imaging or procedure. The amount of fluoroscopy time used during this procedure was 1.2 minutes. Total DAP was 9.46 Gycm^2. COMPARISON: 01/19/2025 FINDINGS/IMPRESSION: Fluoroscopic images demonstrate needle via posterior approach with distal tip within the caudal aspect of the right sacroiliac joint. See procedure note for further detail. Reviewed, dictated and finalized at location A.
--- OUTSIDE RECORDS SUMMARY | 2025-05-31 01:30 | XMS_ITS | Clinical Summary ---
Author Organization [facility] Address [facility] [place] [address] Care Team Providers Care City Comptroller Name Role Phone Unavailable Primary Care Provider Unavailabl e Social History Tobacco Use Types Packs/Day Years Used Date Smoking Tobacco: Never Assessed Comments Unknown Sex and Gender Information Value Date Recorded Sex Assigned at Not on file Legal Sex Female 5:16 PM CDT Gender Identity Not on file Sexual Orientation Not on file Plan of Treatment Health Maintenance Due Date Last Done Comments Cervical Cancer Screening Pa p Smear (Age 30 to 64) Every 3 Years 1978 Colorectal Cancer Screening Colonoscopy (10 Years) 1978 Annual Physical 1981 Hepatitis C 1996 DTaP, Tdap and Td Vaccines ( 1 - Tdap) 1997 Hepatitis B Vaccines (1 of 3 - 19+ 3-dose series) 1997 Cervical Cancer Screening Pa p with HPV Testing (Age 30 to 64) Every 5 Years 2008 Cervical Cancer Screening with HPV 2008 Mammogram Screening 2018 COVID-19 Vaccine (2023-2 5 season) 2025 Meningococcal B Vaccine Aged Out No l onger eligible based on patient's age to complete this topic Meningococcal Vaccine Aged Out No fouzia pam eligible based on patient's age to complete this topic Pneumococcal Vaccine: Pediat rics (0 to 5 Years) and At-Risk Patients (6 to 49 Years) Aged Out No longer eligible b ased on patient's age to complete this topic RSV Immunizations Under 20 Months Aged Out No longer eligible based on patient's age to complete this topic
--- NOTE | 2025-05-31 12:43 | WPDHPUPDATE1 ---
History and Physical Update Update Date/Time: 05/31/25 12:43 History and Physical has been reviewed, including an updated exam of the patient. There are NO changes in the patient's condition. Risks, benefits, and alternatives have been discussed and questions answered. Patient agrees to proceed with procedure.
--- NOTE | 2025-05-31 12:45 | P.OP_ITS ---
Procedure Note - Detailed Date of Procedure 05/31/25 Pre-op Diagnosis sacroiliitis Post-op Diagnosis Same Procedure Performed Right Sacroiliac Joint Steroid Injection under Fluoroscopic Guidance and with Contrast Control. Surgeon Des Esteban MD Computer Consultant None Anesthesia Local Description of Procedure INFORMED CONSENT: Risks, benefits and alternatives to the procedure were discussed in detail with the patient who expressed explicit understanding and consent to proceed. Patient was informed verbally and in written form regarding the risks associated with the procedure including the low risk of serious infection, bleeding/bruising, allergic reaction, nerve or organ injury, paralysis, procedural site pain or discomfort, worsening pain and/or mobility, failure to treat and/or disfigurement. The patient expressed explicit understanding and consent to proceed. All materials required for the procedure were available prior to procedure start. Site and side were marked prior to procedure and confirmed in the presence of the patient. PROCEDURE IN DETAIL: The patient was brought to the procedural suite and placed in the prone position. Patient was made comfortable with use of pillows under the head/chest, hips and ankles. Skin overlying the injection site on the affected side(s) was prepared broadly with ChloraPrep applicator and draped in a sterile manner. Aseptic technique was used throughout. The right SI joint was identified in the AP view and contralateral oblique angulation with caudal tilt was utilized to optimize visualization of the inferior and medial joint line representing the posterior portion of the joint. Local anesthesia was established by infiltration with approximately 5 mL of 2% lidocaine via a 1-1/2 inch 27-gauge needle. A 22-gauge 3.5 inch Quincke spinal needle was advanced until the needle entered the inferior third of the joint space approximately 1cm cephalad from its most inferior point. In the AP view, 0.5 mL of Omnipaque 300 contrast medium was injected after negative aspiration for CSF, blood or other bodily fluid, showing appropriate intra-articular spread of contrast without evidence of intravascular, perineural or intrathecal placement. A 1.5 mL solution containing 10 mg of dexamethasone in 0.5% PF bupivacaine was injected after repeat negative aspiration. Appropriate spread of the injectate was confirmed with washout of previous injected contrast. No parasthesias were elicited. Needle was removed completely intact without difficulty. Images were saved and documented in the patient chart. Patient's skin was cleansed and sterile bandage applied. The patient tolerated the procedure well. The patient was transported to the recovery area in stable condition where they were observed for an appropriate amount of time prior to discharge, without evidence of complication. The patient was instructed to avoid excessive activity for the next 48 hours, including climbing and frequent use of stairs. Showers only for 48 hours. They were instructed not to drive or operate heavy machinery for 24 hours. They are to monitor for severe headaches, fevers, chills, night sweats, erythema/swelling at the site or any other signs of infection, bleeding/bruising, bowel or bladder changes as well as new pain, weakness or numbness in the upper or lower extremity. Should they notice these changes, they are instructed to call our office immediately or report directly to the nearest Emergency Department if no answer or if after posted office hours. COMPLICATIONS: None COMMENTS: None CONTRAST WASTED: 29.5mL Omnipaque 300. Complications No immediate complications Condition Stable Disposition Same day [facility] Billing Surgery - Charge Forward: Surgery Billing
[2025-05-31 13:00] VITALS: BP 136/92; PULSE 63; RESP 16; TEMP 36.3; O2SAT 100
[2025-05-31] MEDS: LIDOCAINE 2% PF LOCAL INJ 5 ML VIAL 3 ML INFILTRATE (13:07)
[2025-05-31 13:14] VITALS: BP 152/89; PULSE 72; RESP 20; O2SAT 97
[2025-05-31] MEDS: LIDOCAINE 1% PF INJ 5 ML VIAL 3 ML INFILTRATE (13:19)
[2025-05-31 13:22] VITALS: BP 151/84; PULSE 69; RESP 18; O2SAT 99
[2025-05-31 13:26] VITALS: BP 133/65; PULSE 62; RESP 20; O2SAT 100
== END 2025-05-31 13:36 | disposition home or self-care (01) ==
PROVIDERS: PCP Nurse Practitioner Family; Visit Provider Anesthesiology Pain Medicine
PROC: (CPT 27096; principal; 2025-05-31 13:30)
DX: M46.1 Sacroiliitis, not elsewhere classified (principal)
CPT/HCPCS: 27096; 99199; J2003; Q9965

== ENCOUNTER 2025-06-23 14:52 | Outpatient (CLI) | payer BC, SELFPAY ==
--- NOTE | ~2025-06-23 | MM_ITS ---
EXAMINATION: screening [facility] BI w abi INDICATION: Asymptomatic, referred for screening mammogram COMPARISON: 03/13/2024 and 07/14/2019 TECHNIQUE: Digital Breast Tomosynthesis CC, MLO views of Both breasts were obtained with computer-aided detection to assist in interpretation of the study. FINDINGS: There are scattered areas of fibroglandular density. There is an asymmetry seen on the MLO view in the Inferior right breast at posterior third. Elsewhere, there are no mammographic features of malignancy. IMPRESSION: 1. Right breast Asymmetry. 2. No evidence of malignancy in the Left breast. RECOMMENDATION: Right breast Diagnostic mammogram with true lateral, appropriate spot compression views and an ultrasound if needed. BI-RADS Category 0: Incomplete: Needs additional imaging evaluation. Reviewed, dictated and finalized at location B. IMPRESSION: 1. Right breast Asymmetry. 2. No evidence of malignancy in the Left breast. RECOMMENDATION: Right breast Diagnostic mammogram with true lateral, appropriate spot compressi on views and an ultrasound if needed. BI-RADS Category 0: Incomplete: Needs additional imaging evaluation.
--- OUTSIDE RECORDS SUMMARY | 2025-06-23 19:11 | XMS_ITS | Clinical Summary ---
Author Organization [facility] Address [address] [place] [address] Care Team Providers Care Full Fashioned Garment Knitter Name Role Phone Mariela Chung TONGUE AND QUARTER STITCHER Primary Care Provider + Allergies No known active allergies Medications No known medications Active Problems Problem Noted Date Diagnosed Date Abnormal uterine bleeding 06/16/2024 S/P endometrial ablation 06/16/2024 Surgical History Surgery Date Site/Laterality Comments SECTION x2 APPENDECTOMY COLONOSCOPY Medical History Medical History Date Comments PONV (postoperative nausea and vomiting) Social History Tobacco Use Types Packs/Day Years Used Date Smoking Tobacco: Never Smokeless Tobacco: Never Tobacco Cessation:Counseling Given: Not Answered AUDIT-C Answer Date Recorded Q1: How often do you have a drink containing alc ohol? Monthly or less 06/16/2024 Q2: How many drinks containi ng alcohol do you have on a typical day when you are drinking? 1 or 2 06/16/2024 Q3: How often do you have si x or more drinks on one occasion? Never 06/16/2024 Personal Safety Answer Date Recorded Have you ever been in or are you currently in a harmful physical or emotional relationship or is someone making you feel afraid or unsafe? 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 Gender Identity Not on file Sexual Orientation Not on file Obstetrics History Last Filed Vital Signs Vital Sign Reading Time Taken Comments Blood Pressure 134/86 06/16/2024 10:00 AM CDT Pulse 58 06/16/2024 10:00 AM CDT Temperature 36.2 C (97.2 F) 06/16/2024 9:30 AM CDT Respiratory Rate 16 06/16/2024 10:00 AM CDT Oxygen Saturation 99% 06/16/2024 10:00 AM CDT Inhaled Oxygen Concentration - - Weight 104.8 kg (231 lb) 06/16/2024 6:45 AM CDT Height 170.2 cm (5' 7) 06/16/2024 6:45 AM CDT Body Mass Index 36.18 06/16/2024 6:45 AM CDT Plan of Treatment Health Maintenance Due Date Last Done Comments Breast Cancer Screening-Mammogram 1978 Cervical Cancer Screening 1978 Colon Cancer Screening-Colonoscopy 1978 Depression Screening 1978 Hepatitis C Screening 1978 DTaP/Tdap/Td Vaccine (1 - Tdap) 1989 Hepatitis B Screening 1996 Regular Well Visit/Exam 18-64 1996 Covid-19 Vaccine ( season) 2025 06/05/2023, 05/11/2022, 01/08/2022, Additional history exists Influenza Vaccine (#1) 2025 , 06/19/2019, 06/17/2015 HPV Vaccines Aged Out No longer eligi ble based on patient's age to complete this topic Pneumococcal vaccine <65 Aged Out No longer eligible based on patient's age to complete this topic Insurance [employer] OOS Member Subscriber Plan / Payer (Ef fective 2023-Present) Name:Marissa Kline Relation to Subscriber:Self Name:Marissa Kline Payer ID:[id number] (NAIC) Group ID:[id number] Type:[place] Address: [facility] [id number] [id number] Care Teams Full Fashioned Garment Knitter Relationship Specialty Start Date End Date Mariela Chung NP PCP - General Nurse Practitioner 06/05/24
--- OUTSIDE RECORDS SUMMARY | 2025-06-23 19:11 | XMS_ITS | Clinical Summary ---
Author Organization [facility] Address [facility] [place] [address] Care Team Providers Care Salon Shampoo Assistant Name Role Phone Unavailable Primary Care Provider [...] 2018 COVID-19 Vaccine (2023-2 5 season) 2025 Influenza Adult (#1) 2025 Hepatitis A Vaccines Aged Out No long er eligible based on patient's age to complete this topic Meningococcal B Vaccine Aged Out No l [...]
== END 2025-06-23 14:53 | disposition home or self-care (01) ==
PROVIDERS: PCP Nurse Practitioner Family; Visit Provider Nurse Practitioner Family
DX: Z12.31 Encounter for screening mammogram for malignant neoplasm of breast (principal); R92.8 Other abnormal and inconclusive findings on diagnostic imaging of breast
CPT/HCPCS: 77063; 77067